=== PATIENT | male | born 1995 | race Caucasian/White ===

== ENCOUNTER 2018-10-27 00:48 | Inpatient (IN) | payer BC, OTHER ==
[~2018-10-27] VITALS: Ht 160 cm; Wt 54.0 kg
--- NOTE | ~2018-10-27 | O ---
[facility] [place] [address] [place] [address] OPERATIVE REPORT Name: VANG AMARO,MIGUEL STIRLING Room #: 464-P [facility] IN M.R.#: [id number] Admission: 10/27/18 ������������������ Attend Phys: Terrance Blood MD Discharge: ������������������ Date of : [birth year] Report #: [id number] THIS REPORT FOR: //name// CC: Hal Blood DATE OF SERVICE: 10/28/2018 PREOPERATIVE DIAGNOSIS: Acute appendicitis. POSTOPERATIVE DIAGNOSIS: Acute appendicitis. OPERATIVE PROCEDURE DONE: Laparoscopic appendectomy. OPERATING SURGEON: Magdiel Shah MD INDICATION FOR THE PROCEDURE: The patient is a 23-year-old male, who presented with 1-day history of abdominal pain in the right lower quadrant. Clinical exam and CT scan was suggestive of acute appendicitis. The patient was advised laparoscopic appendectomy. DESCRIPTION OF PROCEDURE: After explaining to the patient in detail, an informed consent was obtained. The patient was identified in the preoperative holding area. The patient was transferred to the operating room and was placed in supine position. Sequential compressive devices were placed for DVT prophylaxis. Preoperative antibiotics were given. After induction of anesthesia, the abdomen was prepped and draped in a sterile fashion. Through a left lower quadrant stab incision and using Veress needle technique, pneumoperitoneum was created. Thereafter, using an Optiview technique through a 1 cm incision in the left lower quadrant, a 5 mm trocar was placed, another 12 mm trocar was placed through a supraumbilical incision, another 5 mm trocar was placed through a suprapubic incision approximately about 3 cm above the pubic symphysis. On initial inspection, the appendix appeared to be inflamed and there was no evidence of perforation. There were few adhesions around the appendix, which were gently taken down. I then created a window in the mesoappendix at the base and the appendix was divided at the base using Endo-COLTON blue load stapler. I used another white load stapler to divide the mesoappendix. Appendix was then retrieved using an EndoCatch through the supraumbilical incision. Thorough saline irrigation was given. Absolute hemostasis was ensured. The abdomen was then deflated. The incisions were closed with 4-0 Monocryl. The umbilical incision was closed in 2 layers using 0 Vicryl for the fascia and skin was closed with 4-0 Monocryl. Dermabond was applied. Approximately about 10 mL of lidocaine and Marcaine mix was injected into all the incisions. The patient was awoken up from anesthesia and was transferred to the recovery room in stable condition. [address] [address] OPERATIVE REPORT Name: MIGUEL OCHOA STIRLING Room #: 464-P [facility] IN .R.#: [id number] Admission: 10/27/18 ������������������ Attend Phys: Terrance Blood MD Discharge: ������������������ Date of : [birth year] Report #: [id number] ESTIMATED BLOOD LOSS: Approximately 10 mL. CONDITION OF THE PATIENT: Stable. FLUIDS GIVEN: Per Anesthesia notes. SPECIMEN SENT: Appendix. COMPLICATIONS: None. ANESTHESIA: General anesthesia. ��������������������������������������������� ���������������������������������������� By: ��������������������������������������������� [id number] Magdiel Shah MD /nt
--- NOTE | ~2018-10-27 | HC ---
[facility] [place] [address] CONSULTATION Name: MIGUEL OCHOA CHALKYITSIK Room #: 464-P ADM IN M.R.#: [id number] Admission: 10/27/18 ������������������ Attend Phys: Terrance Blood MD Discharge: ������������������ Date of : [birth year] Report #: [id number] THIS REPORT FOR: //name// CC: Hal Blood CHIEF COMPLAINT: Abdominal pain. HISTORY OF PRESENT ILLNESS: The patient is a 23-year-old male who presented with complaints of 1-day history of right lower quadrant pain that he has been having. It has been associated with nausea. Denies any vomiting or fever. The patient denies any similar history in the past. PAST MEDICAL HISTORY: Nonsignificant. PAST SURGICAL HISTORY: Not significant. CURRENT MEDICATIONS: None. ALLERGIES: None. SOCIAL HISTORY: The patient is not a smoker or an alcoholic. Denies any substance abuse. REVIEW OF SYSTEMS: A 10-point review of system was undertaken and is negative except as noted in HPI. PHYSICAL EXAMINATION: GENERAL: The patient appears comfortable and is not in apparent distress. VITAL SIGNS: Blood pressure is 114/64, pulse is 54 per minute. HEENT: Normocephalic, atraumatic. He is anicteric. CARDIOVASCULAR: Heart sounds are regular in rate and rhythm. No murmurs or added sounds. RESPIRATORY SYSTEM: Breath sounds are bilaterally equal. Lungs are clear to auscultation. ABDOMEN: Soft. There is mild tenderness on deep palpation of the right lower quadrant. No rebound tenderness or guarding. EXTREMITIES: No cyanosis or pedal edema. LABORATORY DATA: His white count is normal. IMAGING DATA: CT scan of the abdomen and pelvis that was done, showed features of early acute appendicitis. ASSESSMENT AND PLAN: The patient is a 23-year-old male with acute appendicitis. I have advised him laparoscopic appendectomy and tomorrow. I also explained to him to about the procedure in detail including the risks of [facility] [address] [facility] [place] [address] CONSULTATION Name: CIERA AMAROMIGUEL CHALKYITSIK Room #: 464[facility] IN [facility].#: [id number] Admission: 10/27/18 ������������������ Attend Phys: Terrance Blood MD Discharge: ������������������ Date of : [birth year] Report #: [id number] infection, bleeding, damage to surrounding structures. The patient showed understanding and agrees to proceed. We shall keep him n.p.o. from midnight. ��������������������������������������������� ���������������������������������������� By: ��������������������������������������������� [id number] Magdiel Shah MD /nt
[2018-10-27 01:05] VITALS: BP 100/71
[2018-10-27 02:15] LABS: ABSOLUTE NEUTROPHILS 8.3 thou/uL (1.4-8.2); BASOPHILS 0.3 % (0.0-2.0); EOSINOPHILS 1.1 % (0.0-3.0); HEMATOCRIT 42.3 % (42.0-52.0); HEMOGLOBIN 14.5 gm/dL (14.0-18.0); LYMPHOCYTES 14.3 % (24.0-44.0); MCH 28.1 pg (26.0-34.0); MCHC 34.3 g/dL (28.0-37.0); PLATELET COUNT 221 thou/uL (150-400); POLYS 77.3 % (36.0-66.0); RBC 5.16 mil/uL (4.50-6.00); RDW 13.8 % (10.5-14.5); WBC 10.7 thou/uL (4.0-11.0)
[2018-10-27 02:28] LABS: ANION GAP 11 mmol/L (7-16); BUN 17 mg/dL (7-18); CALCIUM 8.7 mg/dL (8.5-10.1); CHLORIDE 100 mmol/L (98-107); CO2 28 mmol/L (21-32); CREATININE 0.8 mg/dL (0.7-1.3); GLUCOSE 106 mg/dL (74-106); POTASSIUM 3.9 mmol/L (3.5-5.1); SODIUM 139 mmol/L (136-145)
[2018-10-27 02:35] LABS: ALBUMIN 4.4 g/dL (3.4-5.0); DIRECT BILIRUBIN < 0.1 mg/dL (<0.1-0.3); LIPASE 167 U/L (73-393); SGOT 20 U/L (15-37); SGPT 25 U/L (30-65); TOTAL BILIRUBIN 0.4 mg/dL (<0.1-1.0); TOTAL PROTEIN 7.8 g/dL (6.4-8.2)
[2018-10-27 04:14] LABS: URINE BILIRUBIN NEGATIVE (Negative); URINE BLOOD NEGATIVE (Negative); URINE CLARITY CLEAR; URINE COLOR YELLOW; URINE GLUCOSE-RANDOM* NEGATIVE (Negative); URINE KETONES NEGATIVE (Negative); URINE LEUKOCYTES-REFLEX NEGATIVE (Negative); URINE NITRITE-REFLEX NEGATIVE (Negative); URINE PROTEIN (DIPSTICK) NEGATIVE (Negative); URINE UROBILINOGEN 0.2 E.U./dl (0.2-1.0)
--- NOTE | 2018-10-27 07:32 | NUR ---
MD AT BEDSIDE; RACK PUNCHER PHONE IN USE TO DISCUSS POC
[2018-10-27 08:27] VITALS: BP 113/53
[2018-10-27 08:31] VITALS: BP 101/48
[2018-10-27 10:17] VITALS: BP 94/53
[2018-10-27 14:45] VITALS: BP 105/67
--- NOTE | 2018-10-27 18:10 | NUR ---
Received pt from the ER, at the bedside and would interpret for the pt since he is mostly [place] speaking. All consents signed, placed on full liquids and consent obtained for appendectormy roya am. INstructed the pt to be NPO midnight onwards tonight. IV fluids on going, pt verbalized he has poain but refused pain medicatuion. POC followed.
[2018-10-27 19:42] VITALS: BP 111/62
[2018-10-28] VITALS (10 sets, daily range): BP systolic 103–114; BP diastolic 47–69
[2018-10-28 06:02] LABS: HEMATOCRIT 37.6 % (42.0-52.0); HEMOGLOBIN 12.6 gm/dL (14.0-18.0); MCH 27.9 pg (26.0-34.0); MCHC 33.4 g/dL (28.0-37.0); MCV 83.6 fL (80.0-100.0); RBC 4.5 mil/uL (4.50-6.00); RDW 13.7 % (10.5-14.5); WBC 4.3 thou/uL (4.0-11.0)
--- NOTE | 2018-10-28 06:08 | NUR ---
PATIENT WAS AO X4 THIS SHIFT. PATIENT REPORTED SOME ABDOMINAL PAIN WHICH WAS TREATED X 1. PATIENT WAS COMFRTABLE MOST OF THE NIGHT AND WAS ABLE TO GET SOME SLEEP. IS AT BEDSIDE. PATIENT WAS NPO SINCE MIDNIGHT PENDING A SURGERY IN THE AM. PATIENT IS PROGRESSING TOWARDS DISCHARGE GOALS.
[2018-10-28 06:10] LABS: CALCIUM 8.1 mg/dL (8.5-10.1); CREATININE 0.7 mg/dL (0.7-1.3); POTASSIUM 3.8 mmol/L (3.5-5.1)
--- NOTE | 2018-10-28 19:54 | NUR ---
Assumed pt care this am, pt was taken down for his alp appendectomy during shift changed. Post op, pt was stable, had complaints of pain, medication given and partial relief was noted. is at the bedside. Pt is able to ambulate and was able to urinate. diet is well tolerated. POC followed. No further issues or complaints verbalized byt the pt.;
[2018-10-29 04:56] VITALS: BP 99/39
[2018-10-29 04:59] VITALS: BP 118/61
--- NOTE | 2018-10-29 08:00 | NUR ---
PATIENT IS POST OP DAY 1. PATIENT WAS ALERT AND ORIENTED X 4 THIS SHIFT. INSCISION SITE X 4 ARE INTACT. PATIEENT REPORTS SOME PAIN AND DISCOMFORT WHICH WAS TREATED WITH PAIN MEDS. PATIENT WAS UP TO THE BATHROOM AND TOLERATED THAT WELL. NO BM THIS SHIFT BUT PT WAS PASSING GAS. IS AT BEDSIDE. PATENT IS PROGRESSING TOWARDS DISCHARGE GOALS.
[2018-10-29 08:54] VITALS: BP 110/60
[2018-10-29] MEDS ORDERED: NORCO 5-325 TA1 EACH PO (09:37)
[2018-10-29] MEDS ORDERED: COLACE100 MG PO (09:38)
[2018-10-29 11:09] VITALS: BP 110/60
--- NOTE | 2018-10-29 12:04 | NUR ---
Assumed pt care this am,pt is able to ambulate the halls. Did verbalize some pain on the incision sites. Incision site is dry and intact.Pain and discomfort managed by medication . Pt has not had a bowel movement but has been passing gas. POC followed. DC instruction given to the pt and prescriptions given.
--- NOTE | 2018-10-29 15:05 | PATH ---
[facility] [address] [address] PATHOLOGY RPT PROCEDURE Name: SHAHRIAR OCHOA KELLY Room #: 464-P [facility] IN M.R.#: [id number] ������������������ Admission: 10/27/18 ������������������ Date of : [birth year] Discharge: 10/29/18 Report #: [id number] Path Case #: [id number] [facility] Accession Number: [id number] . 01 Material submitted: . appendix - APPENDIX . 01 Clinical history: . Acute appendicitis . 02 Diagnosis: Appendix, appendectomy: - Acute appendicitis along with serositis identified in the mid-third of the appendix. - Prominent reactive lymphoid hyperplasia. (IUV:jaime; 10/29/2018) QMS/10/29/2018 . 02 Electronically signed: . Gretel Smith MD, Pathologist NPI- [id number] . 01 Gross description: . Received in formalin labeled "Amandeep DumontquezJesusShahriar, appendix," is an appendix measuring 5.7 cm in length and ranging from 0.8 to 1.1 cm in diameter with a small amount of attached mesoappendix measuring up to 0.8 cm in thickness. The serosal surface is smooth to shaggy and pale castellon to hemorrhagic in appearance, partially covered in adhesions. The proximal margin is closed with a linear staple line; this area is inked black. Serial sectioning reveals a patent to dilated lumen ranging from 0.2 to 0.7 cm in diameter and partially filled with opaque yellow amorphous material. The proximal margin and bisected distal tip are submitted in cassette A1, and additional call center representative sections are submitted in cassette A2. (DAC; 10/28/2018) XDC/XDC . 02 Pathologist provided ICD-10: K35.80 . 02 CPT . 091370 Specimen Comment: A courtesy copy of this report has been sent to Specimen Comment: [phone], , . Specimen Comment: Report sent to ,DR DÍAZ / DR ANDERSON Performed at: [address] [place] [address] PATHOLOGY RPT PROCEDURE Name: SHAHRIAR OCHOA BRICKEYS Room #: 464-P [facility] IN M.R.#: [id number] ������������������ Admission: 10/27/18 ������������������ Date of : [birth year] Discharge: 10/29/18 Report #: [id number] Path Case #: [id number] [address] [facility] [address], [place], [place] [id number] MD Jonathon Velazquez MD Phone: [phone] Performed at: [address] [id number] MD Gretel Smith MD Phone: [phone]
== END 2018-10-29 14:00 | disposition home or self-care (01) | DRG 343 ==
LOC: ER 00:48 → 4W 07:55 → EROBS 07:55 → 4W 08:33 → ENTRNSPT 10-29 13:03 → EDTRNSPTSTS 10-29 13:06 → 4W 10-29 14:00
PROVIDERS: Emergency Medicine; ADMIT Hospitalist
PROC: 0DTJ4ZZ Resection of Appendix, Percutaneous Endoscopic Approach (ICD-10-PCS; principal; 2018-10-28)
DX: K35.80 Unspecified acute appendicitis (principal)
CPT/HCPCS: 10040; 50010; 50101; 50411; 50555; 50558; 50739; 50740; 51489; 51975; 52265; 52266; 53307; 53310; 54118; 56525; 56526; 62110; 62900; 70005

== ENCOUNTER 2019-01-13 19:49 | Emergency (ER) | payer BC, OTHER ==
[~2019-01-13] VITALS: Ht 160 cm; Wt 54.4 kg
[~2019-01-13 19:49] MED LIST: COLACE100 MG PO; NORCO 5-325 TA1 EACH PO
[2019-01-13] MEDS ORDERED: NOHOMEMEDICATIONS (20:33)
[2019-01-13] MEDS ORDERED: MAGIC MOUTHWASH SW&SWALLOW (21:21)
[2019-01-13 21:41] VITALS: BP 115/67
== END 2019-01-13 21:47 | disposition home or self-care (01) ==
LOC: ER 19:49
DX: S10.11XA Abrasion of throat, initial encounter (principal); R13.10 Dysphagia, unspecified; X58.XXXA Exposure to other specified factors, initial encounter; Y93.89 Activity, other specified; Y92.89 Other specified places as the place of occurrence of the external cause; Y99.8 Other external cause status